=== PATIENT | female | born 1975 | race Caucasian/White ===

== ENCOUNTER → 2016-06-11 | Outpatient (CLI) | payer MEDICARE, MEDICAID ==
[~2016-06-11] MED LIST: ALBUTEROL SULFAT3 M3 IH; ALBUTEROL0.83 MG/ML IH; ATIVAN 0.50.5 MG/TAB PO; ATIVAN0.5 MG PO; ATROVENT0.018 MG/A IH; BACLOFEN PO; BACLOFEN20 MG PO; BACTRIM 400 MG-1 TAB PO; BACTRIM DS 8001 TAB PO; BUSPAR5 MG PEG; CARDIZEM CD120 MG PO; CEFDINIR250 MG/5 M PEG; CELEXA; CELEXA10 MG PEG; CELEXA20 MG PO; CELEXA40 MG PEG; CELEXA40 MG PO; CIPRO 500MG TA500 MG PO; CIPRO250 MG PO; CLARITIN 1010 MG/TAB PEG; CLEOCIN 751500 MG/10 PO; CLEOCIN HC150 MG/CAP PEG; COLACE LIQUI10 MG/ML PO; DESYREL 100MG100 MG PEG; DESYREL 50MG50 MG PO; DESYREL DIVIDO150 M1 PO; DIMETAPP AL2 MG/5 ML PEG; DURAGESIC100 MCG/HR TD; FENTANYL 25 MCG TD; FENTANYL 50MCG TD; FENTANYL 50MCG TP; FLOVENT 110MCG7.9 GM IH; HEALTH CARE AME1 SGL PO; HYTRIN 5MG C5 MG/CAP PO; IMITREX100 MG PO; IPRATROPIUM BROM3 M1 IH; JEVITY PEG; KLONOPIN 0.5MG0.5 MG PEG; KLONOPIN 1MG1 MG PEG; KLONOPIN 1MG1 MG PO; KLONOPIN1 MG PO; LIORESAL20 MG PEG; LIORESAL20 MG PO; LOPRESSOR 225 MG/TAB PO; METOPROLOL SUCC25 MG PO; MIRALAX 17GM PK1 PKT PO; MIRALAX PA17 GM/Dose PEG; MIRALAX PA17 GM/Dose PO; MIRALAX17 GM/DOSE PO; MIRAPEX PO; MIRAPEX0.25 MG PEG; NASAL MOISTURIZ45 ML NS; NORCO 325 MG-51 TAB PO; OXYCODONE; OXYCODONE PO; PHENERGAN 25 TA25 MG PEG; PHENERGAN25 MG RC; PHENERGAN25 MG/ML RC; PREVACID 30MG30 MG PO; PRILOSEC 20MG20 MG PEG; PRILOSEC 20MG20 MG PO; PRO STAT PO; PRO-STAT 64 3030 ML PO; PRUNE JUICE PO; PULMICORT0.5 MG/21 IH; PYRIDIUM 100MG100 MG PEG; PYRIDIUM 100MG100 MG PO; PYRIDIUM200 M1 PO; ROXICODONE 55 MG/TAB PEG; ROXICODONE 55 MG/TAB PO; ROXICODONE5 MG PO; RT ALBUTER2.5 MG/0.5 IH; SALINE NASAL 4444 ML NS; SENNA-LAX8.6 MG PEG; SINGULAIR 110 MG/TAB PEG; SINGULAIR10 MG PO; TYLENOL 325MG325 MG PEG; XOPENEX 1.1.25 MG/3 IH; ZITHROMAX TRI-500 MG PO; [UNRECOGNIZED DRUG - OTHER]; [UNRECOGNIZED DRUG - OTHER] PEG
[2016-06-11 20:42] LABS: PH 8 (5-8); SQUAMOUS EPITHELIAL 0-2 /hpf; URINE APPEARANCE Hazy; URINE BACTERIA Rare /hpf; URINE BILIRUBIN Negative (NEGATIVE); URINE BLOOD 2+ (NEGATIVE); URINE COLOR Yellow; URINE GLUCOSE Negative (NEGATIVE); URINE KETONE Negative (NEGATIVE); URINE RBC >50 /hpf; URINE UROBILINOGEN Negative (NEGATIVE); URINE WBC 20-50 /hpf
== END ==
LOC: ZCOL.LAB 16:45
PROVIDERS: Urology
DX: Z01.89 Encounter for other specified special examinations (principal)

== ENCOUNTER 2016-08-04 12:53 | Emergency (ER) | payer MEDICARE, MEDICAID ==
[2008-11-24 03:10] VITALS: BP 111/42
[~2016-08-04] VITALS: Ht 137.2 cm; Wt 56.8 kg
[~2016-08-04 12:53] MED LIST changes: -CLEOCIN HC150 MG/CAP PEG; -FENTANYL 50MCG TD; -RT ALBUTER2.5 MG/0.5 IH
[2016-08-04 12:54] VITALS: TEMP 98.8
[2016-08-04 13:44] LABS: HEMOGLOBIN 13.3 g/dl (12.5-16.0); MEAN CELL VOLUME 85 fl (80.0-100.0); MEAN CORPUSCULAR HEMOGLOBIN 28 pg (27.0-31.0); MEAN CORPUSCULAR HGB CONC 33 g/dl (33.0-37.0); MEAN PLATELET VOLUME 11.1 fl (7.4-10.4); PLATELET COUNT 149 K/mm3 (130-400); REDCELL DISTRIBUTION WIDTH-CV 13.2 % (11.5-14.5); WHITE BLOOD COUNT 6.4 K/mm3 (4.8-10.8)
[2016-08-04 13:48] LABS: ADD PATHOLOGY DIFF REVIEW NO
[2016-08-04 13:54] LABS: CALCIUM 9.1 mg/dL (8.4-10.2); CREATININE, serum 0.43 mg/dL (0.52-1.25); POTASSIUM 3.8 mmol/L (3.4-5.0)
[2016-08-04 14:22] LABS: BAND 9 % (0-10); EOSINOPHIL 1 % (0-4); NEUTROPHILS 42 % (42.0-75.2); PLATELET ESTIMATE NORMAL (NORMAL); TOTAL CELLS COUNTED 100
[2016-08-04 14:40] VITALS: BP 103/91
[2016-08-04] MEDS ORDERED: RT ALBUTER2.5 MG/0.5 IH (14:55)
[2016-08-04] MEDS ORDERED: CLEOCIN HC150 MG/CAP PEG (14:55)
[2016-08-04 15:24] VITALS: PULSE 112
== END 2016-08-04 15:25 | disposition home or self-care (01) ==
LOC: COL.ER 12:53
PROVIDERS: Emergency Medicine
DX: R05 Cough (principal); J20.9 Acute bronchitis, unspecified; J45.901 Unspecified asthma with (acute) exacerbation
CPT/HCPCS: J8540

== ENCOUNTER 2016-08-05 07:34 | Emergency (ER) | payer MEDICARE, MEDICAID ==
[~2016-08-05] VITALS: Ht 137.2 cm; Wt 51.8 kg
[~2016-08-05 07:34] MED LIST changes: +CLEOCIN HC150 MG/CAP PEG; +RT ALBUTER2.5 MG/0.5 IH
[2016-08-05 07:40] VITALS: BP 133/61; PULSE 98
[2016-08-05 08:32] VITALS: TEMP 97.5
== END 2016-08-05 08:31 | disposition home or self-care (01) ==
LOC: COL.ER 07:34
DX: Z46.6 Encounter for fitting and adjustment of urinary device (principal)

== ENCOUNTER 2016-08-14 08:29 | Emergency (ER) | payer MEDICARE, MEDICAID ==
[2008-11-24 03:10] VITALS: BP 111/42
[~2016-08-14] VITALS: Ht 137.2 cm; Wt 51.4 kg
[2016-08-14 08:36] VITALS: BP 98/41; PULSE 101; TEMP 98.2
[2016-08-14] MEDS ORDERED: FENTANYL 50MCG TD (09:07)
== END 2016-08-14 09:00 | disposition home or self-care (01) ==
LOC: COL.ER 08:29
DX: Z43.1 Encounter for attention to gastrostomy (principal)

== ENCOUNTER 2016-10-20 18:41 | Emergency (ER) | payer MEDICARE, MEDICAID ==
[2016-10-20 19:38] LABS: BASO % 0.3 % (0.0-2.0); EOS # 0.1 (0.0-0.7); EOS % 0.9 % (0-4.0); GRAN % 65.1 % (42.2-75.2); HEMOGLOBIN 12.1 g/dl (12.5-16.0); LYMPH # 1.8 (1.2-3.4); LYMPH % 23.3 % (20.0-51.0); MEAN CELL VOLUME 85 fl (80.0-100.0); MEAN CORPUSCULAR HEMOGLOBIN 29 pg (27.0-31.0); MEAN CORPUSCULAR HGB CONC 35 g/dl (33.0-37.0); MEAN PLATELET VOLUME 11.5 fl (7.4-10.4); MONO # 0.8 (0.1-0.6); MONO % 10.1 % (1.7-9.3); PLATELET COUNT 159 K/mm3 (130-400); RED BLOOD COUNT 4.14 M/mm3 (4.10-5.30); REDCELL DISTRIBUTION WIDTH-CV 13.9 % (11.5-14.5); WHITE BLOOD COUNT 7.7 K/mm3 (4.8-10.8)
[2016-10-20 19:49] LABS: ADJUSTED CALCIUM 9.5 mg/dL (8.4-10.2); ALBUMIN 3.8 gm/dL (3.5-5.0); BILIRUBIN,TOTAL 0.4 mg/dL (0.0-1.0); CALCIUM 9.3 mg/dL (8.4-10.2); CREATININE, serum 0.45 mg/dL (0.52-1.25); POTASSIUM 3.8 mmol/L (3.4-5.0); TOTAL PROTEIN 7.6 gm/dL (6.4-8.2)
[2016-10-20 20:06] LABS: C-REACTIVE PROTEIN 20.7 mg/dL (0.0-0.9)
[2016-10-20 20:31] LABS: PH 9 (5-8); SQUAMOUS EPITHELIAL None Seen /hpf; URINE APPEARANCE Clear; URINE BACTERIA Rare /hpf; URINE BILIRUBIN Negative (NEGATIVE); URINE BLOOD Negative (NEGATIVE); URINE COLOR Yellow; URINE GLUCOSE Negative (NEGATIVE); URINE KETONE Negative (NEGATIVE); URINE UROBILINOGEN Negative (NEGATIVE); URINE WBC >50 /hpf
[2016-10-20] MEDS ORDERED: CIPRO 500MG TA500 MG PO (21:45)
[2016-10-20 22:15] VITALS: BP 108/65; PULSE 99; TEMP 100.8
== END 2016-10-20 22:59 | disposition home or self-care (01) ==
LOC: COL.ER 18:41
PROVIDERS: Family Medicine
DX: N39.0 Urinary tract infection, site not specified (principal); R10.84 Generalized abdominal pain; K59.00 Constipation, unspecified; R50.9 Fever, unspecified; G80.9 Cerebral palsy, unspecified; Z46.6 Encounter for fitting and adjustment of urinary device; F32.9 Major depressive disorder, single episode, unspecified; Z93.0 Tracheostomy status
CPT/HCPCS: J0696; J7030

== ENCOUNTER → 2016-10-20 | Outpatient (CLI) | payer MEDICARE, MEDICAID ==
[~2016-10-20] MED LIST changes: +FENTANYL 50MCG TD
[2016-10-20 20:21] LABS: PH 8 (5-8); URINE APPEARANCE Hazy; URINE BACTERIA Rare /hpf; URINE BILIRUBIN Negative (NEGATIVE); URINE BLOOD 1+ (NEGATIVE); URINE COLOR Yellow; URINE GLUCOSE Negative (NEGATIVE); URINE KETONE Negative (NEGATIVE); URINE UROBILINOGEN Negative (NEGATIVE); URINE WBC >50 /hpf
== END ==
LOC: COL.LAB 18:17
PROVIDERS: Urology
DX: R50.9 Fever, unspecified (principal); R82.99 Other abnormal findings in urine

== ENCOUNTER → 2017-07-03 | Outpatient (CLI) | payer MEDICARE, MEDICAID ==
[~2017-07-03] MED LIST changes: +SALINE 45 ML45 ML NS
[2017-07-03 21:56] LABS: COLLECTION METHOD CLEAN CATCH
[2017-07-03 22:09] LABS: AMORPHOUS CRYSTAL Present /uL; PH 9 (5-8); SQUAMOUS EPITHELIAL 0-2 /hpf; URINE APPEARANCE Turbid; URINE BACTERIA Rare /hpf; URINE BILIRUBIN Negative (NEGATIVE); URINE BLOOD Negative (NEGATIVE); URINE COLOR Yellow; URINE GLUCOSE Negative (NEGATIVE); URINE KETONE Negative (NEGATIVE); URINE LEUKOCYTE ESTERASE 1+ (NEGATIVE); URINE NITRATE Negative (NEGATIVE); URINE PROTEIN(semi-quant) 1+ (NEGATIVE); URINE UROBILINOGEN Negative (NEGATIVE)
== END ==
LOC: ZCOL.LAB 21:16
PROVIDERS: Urology
DX: N23 Unspecified renal colic (principal)

== ENCOUNTER → 2017-08-27 | Outpatient (CLI) | payer MEDICARE, MEDICAID ==
[2017-08-27 21:27] LABS: MUCOUS Present /lpf; PH 9 (5-8); SQUAMOUS EPITHELIAL None Seen /hpf; URINE APPEARANCE Clear; URINE BACTERIA Rare /hpf; URINE BILIRUBIN Negative (NEGATIVE); URINE BLOOD 2+ (NEGATIVE); URINE COLOR Yellow; URINE GLUCOSE Negative (NEGATIVE); URINE KETONE Negative (NEGATIVE); URINE LEUKOCYTE ESTERASE 3+ (NEGATIVE); URINE NITRATE Positive (NEGATIVE); URINE PROTEIN(semi-quant) Negative (NEGATIVE); URINE UROBILINOGEN Negative (NEGATIVE)
[2017-08-27 22:06] LABS: COLLECTION METHOD CATHETER
== END ==
LOC: ZCOL.LAB 21:05
PROVIDERS: Urology
DX: R10.12 Left upper quadrant pain (principal)

== ENCOUNTER 2017-10-09 12:23 | Emergency (ER) | payer MEDICARE, MEDICAID ==
[2008-11-24 03:10] VITALS: BP 111/42
[~2017-10-09] VITALS: Ht 137.2 cm; Wt 60.9 kg
[2017-10-09 12:27] VITALS: TEMP 98.4
[2017-10-09 13:14] LABS: COLLECTION METHOD CATHETER
[2017-10-09 13:18] LABS: BASO % 0.4 % (0.0-2.0); EOS # 0.4 (0.0-0.7); EOS % 4.1 % (0-4.0); GRAN # 5.1 (1.4-6.5); GRAN % 51.4 % (42.2-75.2); HEMOGLOBIN 12.6 g/dl (12.5-16.0); MEAN CELL VOLUME 84 fl (80.0-100.0); MEAN CORPUSCULAR HEMOGLOBIN 28 pg (27.0-31.0); MEAN CORPUSCULAR HGB CONC 33 g/dl (33.0-37.0); MONO # 0.4 (0.1-0.6); MONO % 3.7 % (1.7-9.3); PLATELET COUNT 270 K/mm3 (130-400); RED BLOOD COUNT 4.55 M/mm3 (4.10-5.30)
[2017-10-09 13:25] LABS: PH 6 (5-8); SQUAMOUS EPITHELIAL None Seen /hpf; URINE APPEARANCE Clear; URINE BACTERIA Rare /hpf; URINE BILIRUBIN Negative (NEGATIVE); URINE BLOOD 2+ (NEGATIVE); URINE COLOR Straw; URINE GLUCOSE Negative (NEGATIVE); URINE KETONE Negative (NEGATIVE); URINE LEUKOCYTE ESTERASE 3+ (NEGATIVE); URINE NITRATE Negative (NEGATIVE); URINE PROTEIN(semi-quant) 1+ (NEGATIVE); URINE UROBILINOGEN Negative (NEGATIVE)
[2017-10-09 13:29] LABS: ALBUMIN 3.9 gm/dL (3.5-5.0); BILIRUBIN,TOTAL 0.3 mg/dL (0.0-1.0); CALCIUM 9.3 mg/dL (8.4-10.2); CREATININE, serum 0.46 mg/dL (0.52-1.25); TOTAL PROTEIN 8.5 gm/dL (6.4-8.2)
[2017-10-09] MEDS ORDERED: CEFDINIR250 MG/5 M PO (14:03)
[2017-10-09 15:15] VITALS: BP 106/96; PULSE 74
== END 2017-10-09 12:50 | disposition home or self-care (01) ==
LOC: COL.ER 12:23
PROVIDERS: Physician Assistant Medical
DX: N39.0 Urinary tract infection, site not specified (principal); I25.2 Old myocardial infarction
CPT/HCPCS: J0696

== ENCOUNTER 2018-01-06 08:53 | Emergency (ER) | payer MEDICARE, MEDICAID ==
[2008-11-24 03:10] VITALS: BP 111/42
[~2018-01-06] VITALS: Ht 137.2 cm; Wt 59.1 kg
[~2018-01-06 08:53] MED LIST changes: +CEFDINIR250 MG/5 M PO
[2018-01-06 10:13] LABS: COLLECTION METHOD CATHETER
[2018-01-06 10:23] LABS: MUCOUS Present /lpf; PH 8 (5-8); SQUAMOUS EPITHELIAL 0-2 /hpf; URINE APPEARANCE Cloudy; URINE BACTERIA Moderate /hpf; URINE BILIRUBIN Negative (NEGATIVE); URINE BLOOD 3+ (NEGATIVE); URINE COLOR Yellow; URINE GLUCOSE Negative (NEGATIVE); URINE KETONE Negative (NEGATIVE); URINE LEUKOCYTE ESTERASE 3+ (NEGATIVE); URINE NITRATE Negative (NEGATIVE); URINE PROTEIN(semi-quant) 2+ (NEGATIVE); URINE RBC 20-50 /hpf; URINE UROBILINOGEN Negative (NEGATIVE); URINE WBC >50 /hpf
[2018-01-06 11:16] VITALS: TEMP 98.3
[2018-01-06 11:23] LABS: BASO % 0.3 % (0.0-2.0); EOS # 0.2 (0.0-0.7); EOS % 1.6 % (0-4.0); GRAN # 7.2 (1.4-6.5); GRAN % 70.3 % (42.2-75.2); HEMATOCRIT 42.3 % (37.0-47.0); LYMPH # 2.3 (1.2-3.4); LYMPH % 22.6 % (20.0-51.0); MEAN CELL VOLUME 86 fl (80.0-100.0); MEAN CORPUSCULAR HEMOGLOBIN 28 pg (27.0-31.0); MEAN CORPUSCULAR HGB CONC 33 g/dl (33.0-37.0); MEAN PLATELET VOLUME 11.5 fl (7.4-10.4); MONO # 0.5 (0.1-0.6); PLATELET COUNT 184 K/mm3 (130-400); RED BLOOD COUNT 4.93 M/mm3 (4.10-5.30); REDCELL DISTRIBUTION WIDTH-CV 13.8 % (11.5-14.5)
[2018-01-06 11:30] LABS: ALBUMIN 4.3 gm/dL (3.5-5.0); BILIRUBIN,TOTAL 0.6 mg/dL (0.0-1.0); CALCIUM 9.4 mg/dL (8.4-10.2); CREATININE, serum 0.41 mg/dL (0.52-1.25); POTASSIUM 4.4 mmol/L (3.4-5.0); TOTAL PROTEIN 8.2 gm/dL (6.4-8.2)
[2018-01-06] MEDS ORDERED: OMNICEF 300MG300 MG PO (11:42)
[2018-01-06] MEDS ORDERED: PRILOSEC 20MG20 MG PO (11:52)
[2018-01-06] MEDS ORDERED: CELEXA40 MG PO (11:53)
[2018-01-06] MEDS ORDERED: FENTANYL 50MCG TD (11:54)
[2018-01-06] MEDS ORDERED: LIORESAL20 MG PO (11:54)
[2018-01-06] MEDS ORDERED: KLONOPIN WAFER0.5 MG PO (11:55)
[2018-01-06 12:57] VITALS: BP 116/77; PULSE 99
== END 2018-01-06 12:59 | disposition home or self-care (01) ==
LOC: COL.ER 08:53
PROVIDERS: Emergency Medicine
DX: N12 Tubulo-interstitial nephritis, not specified as acute or chronic (principal); G80.0 Spastic quadriplegic cerebral palsy; Z98.890 Other specified postprocedural states; Z87.442 Personal history of urinary calculi; Z86.73 Personal history of transient ischemic attack (TIA), and cerebral infarction without residual deficits
CPT/HCPCS: J0696; J1885; J7030

== ENCOUNTER → 2018-01-29 | Outpatient (CLI) | payer MEDICARE, MEDICAID ==
[~2018-01-29] MED LIST changes: +KLONOPIN WAFER0.5 MG PO; +OMNICEF 300MG300 MG PO
== END ==
LOC: COL.RAD 12:20
DX: N20.0 Calculus of kidney (principal); Z96.7 Presence of other bone and tendon implants

== ENCOUNTER 2018-04-07 10:12 | Day surgery (SDC) | payer MEDICARE, MEDICAID ==
[2008-11-24 03:10] VITALS: BP 111/42
[~2018-04-07] VITALS: Ht 137.2 cm; Wt 57.7 kg
[2018-04-07 11:17] VITALS: BP 150/88; TEMP 98.4
[2018-04-07] MEDS ORDERED: BUSPAR5 MG PO (11:34)
[2018-04-07] MEDS ORDERED: KLONOPIN 1MG1 MG PO (11:36)
[2018-04-07] MEDS ORDERED: ATROVENT I0.2 MG/1 M IH (11:37)
[2018-04-07] MEDS ORDERED: SINGULAIR 110 MG/TAB PO (11:37)
[2018-04-07] MEDS ORDERED: PRILOSEC 20MG20 MG PO (11:38)
[2018-04-07] MEDS ORDERED: JEVITY (11:39)
[2018-04-07] MEDS ORDERED: MIRAPEX0.25 MG (11:40)
[2018-04-07] MEDS ORDERED: SENNA8.8 MG/5 M PEG (11:41)
[2018-04-07] MEDS ORDERED: ROXICODONE 55 MG/TAB PO (11:42)
[2018-04-07] MEDS ORDERED: FENTANYL 50MCG TD (11:42)
[2018-04-07] MEDS ORDERED: TYLENOL 325MG325 MG PO (11:45)
[2018-04-07] MEDS ORDERED: BISMATROL PO (11:46)
[2018-04-07] MEDS ORDERED: EXPECTORANT DM120 ML PO (11:47)
[2018-04-07] MEDS ORDERED: RULOX PO (11:48)
[2018-04-07] MEDS ORDERED: IMITREX100 MG PO (11:48)
[2018-04-07] MEDS ORDERED: GOOD SENSE400 MG/5 M PO (11:48)
[2018-04-07] MEDS ORDERED: DESYREL 50MG50 MG PO (11:49)
[2018-04-07] MEDS ORDERED: PYRIDIUM 100MG100 MG PO (11:49)
[2018-04-07] MEDS ORDERED: MIRALAX PA17 GM/Dose PO (11:50)
[2018-04-07] MEDS ORDERED: DEBROX OT (11:50)
[2018-04-07] MEDS ORDERED: ULTRAM 50MG TAB50 MG PO (11:50)
[2018-04-07 14:12] VITALS: BP 135/78; PULSE 101; TEMP 99.7
[2018-04-07 14:36] VITALS: BP 131/63; PULSE 103
[2018-04-07 14:45] VITALS: BP 116/62; PULSE 98; TEMP 98.4
== END 2018-04-07 16:00 | disposition home or self-care (01) ==
LOC: SDCO 10:12
DX: N20.0 Calculus of kidney (principal); N39.46 Mixed incontinence; J45.909 Unspecified asthma, uncomplicated; I25.2 Old myocardial infarction; G47.33 Obstructive sleep apnea (adult) (pediatric); J96.11 Chronic respiratory failure with hypoxia; Z87.440 Personal history of urinary (tract) infections; Z86.73 Personal history of transient ischemic attack (TIA), and cerebral infarction without residual deficits; Z90.710 Acquired absence of both cervix and uterus; Z88.5 Allergy status to narcotic agent; Z83.3 Family history of diabetes mellitus
CPT/HCPCS: A4215; C1769; C2617; J0585; J0690; J2405; J2704; J3010; J7120; L8606; Q9967

== ENCOUNTER 2018-09-14 10:25 | Day surgery (SDC) | payer MEDICARE, MEDICAID ==
[2008-11-24 03:10] VITALS: BP 111/42
[~2018-09-14] VITALS: Ht 137.2 cm; Wt 57.3 kg
[~2018-09-14 10:25] MED LIST changes: +ATROVENT I0.2 MG/1 M IH; +BISMATROL PO; +BUSPAR5 MG PO; +DEBROX OT; +EXPECTORANT DM120 ML PO; +GOOD SENSE400 MG/5 M PO; +JEVITY; +MIRAPEX0.25 MG; +RULOX PO; +SENNA8.8 MG/5 M PEG; +SINGULAIR 110 MG/TAB PO; +TYLENOL 325MG325 MG PO; +ULTRAM 50MG TAB50 MG PO
[2018-09-14 11:23] VITALS: BP 143/107; PULSE 91; TEMP 100
[2018-09-14] MEDS ORDERED: KLONOPIN 0.5MG0.5 MG PO (11:30)
[2018-09-14] MEDS ORDERED: MIRALAX PA17 GM/Dose PO (11:37)
[2018-09-14] MEDS ORDERED: PYRIDIUM 100MG100 MG PO (11:40)
--- NOTE | 2018-09-14 11:42 | NUR ---
PROCEDURE COMPLETE FAMILY BACK IN THE .
--- NOTE | 2018-09-14 12:00 | NUR ---
CALVERT PATENT WITH LIGHT YELLOW URINE.
--- NOTE | 2018-09-14 12:30 | NUR ---
BACK INTO OWN ELECTRIC WC USING A TOTAL ANTONIO LIFT. TOLERATED WELL.
--- NOTE | 2018-09-14 12:46 | NUR ---
COOK CANDY CAITLIN, GIVING PATIENT HER MEDS AND STARTED HER TUBE FEEDINGS
--- NOTE | 2018-09-14 12:57 | NUR ---
DISCHARGED PER OWN ELECTRIC WC IN CARE OF NUCLEAR MEDICINE MEDICAL DIRECTOR CAITLIN
== END 2018-09-14 12:59 ==
LOC: SDCO 10:25
DX: N39.0 Urinary tract infection, site not specified (principal); N31.9 Neuromuscular dysfunction of bladder, unspecified; Z90.710 Acquired absence of both cervix and uterus; Z88.5 Allergy status to narcotic agent; Z83.3 Family history of diabetes mellitus

== ENCOUNTER 2018-12-28 08:51 | Day surgery (SDC) | payer MEDICARE, MEDICAID ==
[2008-11-24 03:10] VITALS: BP 111/42
[~2018-12-28] VITALS: Ht 137.2 cm; Wt 58.6 kg
[~2018-12-28 08:51] MED LIST changes: +KLONOPIN 0.5MG0.5 MG PO
[2018-12-28] MEDS ORDERED: BACTRIM DS 8001 TAB PO (10:12)
[2018-12-28] MEDS ORDERED: KLONOPIN 0.5MG0.5 MG PO (10:15)
[2018-12-28] MEDS ORDERED: SENNA-S 50 MG-81 TAB PO (10:17)
[2018-12-28] MEDS ORDERED: BISMATROL PO (10:21)
[2018-12-28] MEDS ORDERED: SALINE 45 ML45 ML NS (10:29)
[2018-12-28] MEDS ORDERED: PHENERGAN1.25 MG/ML PO (10:30)
[2018-12-28] MEDS ORDERED: DEBROX OT (10:31)
[2018-12-28 10:35] VITALS: BP 94/66; PULSE 84; TEMP 98.4
[2018-12-28 12:05] VITALS: BP 120/64; PULSE 107; TEMP 98.5
--- NOTE | 2018-12-28 12:05 | NUR ---
[place] [facility] [facility] [place] PAC[place]. Pt awake and alert. C/O leg pain. Denies nausea. Dressing to suprapubic site is clean and dry. Springer catheter draining yellow/pink urine. Pt wants up into her wheel chair as it is more comfortable for her and she wants her peg tube feeding/meds. Will get some supplies and assist pt up to her wheel chair.
--- NOTE | 2018-12-28 12:35 | NUR ---
Pt up to wheel chair with jhonny lift. Pt dressed. Caregiver going to give her her home medications and peg tube feeding.
[2018-12-28 13:02] VITALS: BP 153/72; PULSE 87
--- NOTE | 2018-12-28 13:02 | NUR ---
Discharge instructions reviewed. Pt and caregiver voice understanding. IV site discontinued with all parts intact. Pt escorted to transport car via personal powered wheel chair. Pt accompanied home by her caregiver.
== END 2018-12-28 13:02 | disposition home or self-care (01) ==
LOC: SDCO 08:51
DX: N39.46 Mixed incontinence (principal); N39.0 Urinary tract infection, site not specified; G80.9 Cerebral palsy, unspecified; J96.10 Chronic respiratory failure, unspecified whether with hypoxia or hypercapnia; K21.9 Gastro-esophageal reflux disease without esophagitis; J40 Bronchitis, not specified as acute or chronic; G89.29 Other chronic pain; Z90.710 Acquired absence of both cervix and uterus; Z83.3 Family history of diabetes mellitus; Z88.5 Allergy status to narcotic agent
CPT/HCPCS: A4215; J0585; J0690; J1100; J2405; J2704; J3010; J7120

== ENCOUNTER 2020-09-19 09:13 | Day surgery (SDC) | payer MEDICARE, MEDICAID ==
[2008-11-24 03:10] VITALS: BP 111/42
[~2020-09-19] VITALS: Ht 137.2 cm; Wt 60.0 kg
[~2020-09-19 09:13] MED LIST changes: +PHENERGAN1.25 MG/ML PO; +SENNA-S 50 MG-81 TAB PO
[2020-09-19 10:51] VITALS: PULSE 88; TEMP 98.8
[2020-09-19] MEDS ORDERED: BROVANA15 MCG/2 M IH (11:12)
[2020-09-19] MEDS ORDERED: PULMICORT R1 MG/2 ML IH (11:14)
[2020-09-19] MEDS ORDERED: KLONOPIN2 MG PO (11:16)
[2020-09-19] MEDS ORDERED: FENTANYL 50MCG TD (11:16)
[2020-09-19] MEDS ORDERED: PREVACID 30MG30 M1 PO (11:19)
[2020-09-19 12:40] VITALS: BP 107/52; PULSE 95; TEMP 98.2
--- NOTE | 2020-09-19 12:40 | NUR ---
Patient is back in [facility] from OR and repostioned in bed per requested of patient. Patient is alert and oriented and requested to try some orange juice. Patient is maintaining O2 saturation on 2L of oxygen. Post op vitals started at this time and are stable. Suprapubic catheter in place, urine is clear and pink. Attempted to get caregiver from waiting room, unable to find her and will continue to try to locate her.
[2020-09-19 12:55] VITALS: BP 110/53; PULSE 92
--- NOTE | 2020-09-19 12:55 | NUR ---
Patient is alert and oriented. Vital signs are stable and patient is maintaining O2 staturation on 2L. Patient is tolerating juice well. Attempted to locate caregiver per patients request before tranfering back to personal wheelchair. Unable to locate caregiver, will continue to try to locate.
[2020-09-19 13:10] VITALS: BP 103/57; PULSE 93
--- NOTE | 2020-09-19 13:35 | NUR ---
Report was called to STEF Montemayor who will resuming care of the patient upon her return to [facility]. She verbalized understanding and has no questions for the nurse at this time. The patient's discharge paperwork will be sent with the patient upon discharge back to the facility.
--- NOTE | 2020-09-19 14:05 | NUR ---
The patient and the caregiver were escorted down to the transport vehicle by STEF Zamudio. Theh patient's belongings and discharge paperwork were sent with her. The patient's caregiver from [facility] is present to drive her back to their facility.
--- NOTE | 2020-09-19 15:22 | NUR ---
Patient is alert and oriented. Post op vital signs remain stable and are now complete. Patient transfered to personal wheelchair after locating managed care director. Aided patient in dressing and switching to home oxygen. Placed stat lock on patients right upper leg and hung bag blow bladder, draining well. Caregiver started feeding through peg per patient request, patient appears to be tolerating well. Accompanied caregiver and patient out to patient entrance in personal wheelchair.
== END 2020-09-19 14:05 | disposition home or self-care (01) ==
LOC: SDCO 09:13
DX: R35.0 Frequency of micturition (principal); N39.46 Mixed incontinence; N31.9 Neuromuscular dysfunction of bladder, unspecified; N39.0 Urinary tract infection, site not specified; G80.0 Spastic quadriplegic cerebral palsy; G25.81 Restless legs syndrome; F32.9 Major depressive disorder, single episode, unspecified; J45.909 Unspecified asthma, uncomplicated; K21.9 Gastro-esophageal reflux disease without esophagitis; G47.33 Obstructive sleep apnea (adult) (pediatric); G43.909 Migraine, unspecified, not intractable, without status migrainosus; J96.10 Chronic respiratory failure, unspecified whether with hypoxia or hypercapnia; Z79.899 Other long term (current) drug therapy
CPT/HCPCS: A4215; C1769; J0585; J0690; J2704; J3010

== ENCOUNTER 2021-04-24 07:36 | Day surgery (SDC) | payer MEDICARE, MEDICAID ==
[2008-11-24 03:10] VITALS: BP 111/42
[~2021-04-24] VITALS: Wt 61.5 kg
[2021-04-24] VITALS (8 sets, daily range): BP systolic 113–149; BP diastolic 59–89; PULSE 64–100; TEMP 97.5–98.1
[~2021-04-24 07:36] MED LIST changes: +BROVANA15 MCG/2 M IH; +KLONOPIN2 MG PO; +PREVACID 30MG30 M1 PO; +PULMICORT R1 MG/2 ML IH
[2021-04-24] MEDS ORDERED: CYMBALTA 30MG30 MG PO (13:47)
[2021-04-24] MEDS ORDERED: [UNRECOGNIZED DRUG - OTHER] PEG (13:51)
[2021-04-24] MEDS ORDERED: STIMULANT PO (14:01)
[2021-04-24] MEDS ORDERED: AMOXICILLIN 50500 MG PO (14:02)
[2021-04-24] MEDS ORDERED: KLONOPIN 0.5MG0.5 MG PO (14:04)
[2021-04-24] MEDS ORDERED: [UNRECOGNIZED DRUG - OTHER] PO (14:05)
--- NOTE | 2021-04-24 14:53 | NUR ---
PT ADMITTED TO ROOM 326 FROM OR VIA BED ACCOMPANIED BY MANAGER NEWS. LAP SITE/ SURGICAL INCISION CD&I. PT MOM AND BROTHER AT THE BEDSIDE
--- NOTE | 2021-04-24 14:55 | NUR ---
PT WAS NOT ON THE FLOOR AT THIS TIME
--- NOTE | 2021-04-24 14:55 | NUR ---
PT WAS NOT ON THE FLLOR AT THIS TIME
[2021-04-24] MEDS ORDERED: IMITREX100 MG PO (16:47)
[2021-04-25 02:59] VITALS: BP 100/65
[2021-04-25 03:02] VITALS: PULSE 94; TEMP 98.4
[2021-04-25 08:25] VITALS: BP 120/66; PULSE 91; TEMP 99.1
--- NOTE | 2021-04-25 09:14 | NUR ---
PT ASSESSED. NO COMPLAINS OF PAIN BUT NOT DYSPNEA. NO SIGNS OR SYMPTOMS OF DISTRESS. FENTANYL PATCH ORDERED AND PLACED PER PT REQUEST/ MD ORDER.
--- NOTE | 2021-04-25 12:23 | NUR ---
PT DISCHARGE COMPLETE. PT ASSISTED UP TO WHEELCHAIR WITH ASSISTANCE FROM FACILITY STAFF.
== END 2021-04-25 12:37 ==
LOC: SDCO 07:36 → SURG 14:59 → SDCO 04-25 12:37
DX: K80.10 Calculus of gallbladder with chronic cholecystitis without obstruction (principal); N20.0 Calculus of kidney
CPT/HCPCS: OP; C1769; C1894; C2617; J0690; J1100; J1450; J2405; J2543; J2704; J3010; J7120; Q9967